=== PATIENT | male | born 1990 | race Caucasian/White ===

== ENCOUNTER 2024-09-15 20:10 | Emergency (ER) | payer SELFPAY ==
[2024-09-15 20:13] VITALS: BP 116/72; PULSE 76; RESP 14; TEMP 36.6; O2SAT 99; BMI 25.9
[2024-09-15] MEDS: tetanus-dipt-pertussis 0.5 mL SDV IM (20:30)
[2024-09-15 20:46] VITALS: BP 113/69; PULSE 72; O2SAT 99
--- NOTE | 2024-09-15 21:11 | W.ED.SKABFB ---
HPI - Skin/Abscess/Foreign Bdy General: Chief complaint: Skin/Abscess/Foreign Body Stated complaint: splinter in R arm Time Seen by Provider: 09/15/24 20:15 Source: patient Mode of arrival: ambulatory Limitations: no limitations History of Present Illness: Patient is a 34-year-old male who presents to the emergency department complaining of foreign body in his right forearm. He works in a sawmill and states that he thinks that he got a splinter lodged in his right forearm under the skin. States that he is ultimately not sure when this occurred but that he can feel something mobile under the skin. Tetanus not up-to-date. No pain reported. No fever or other symptoms. MD complaint: foreign body Onset (ago): unknown Tetanus up to date: no Location: RUE Context: other (Works in a sawmill, thinks splinter under skin) Associated symptoms: Deny chills, fever(s), nausea or vomiting Treatments prior to arrival: none Related Data Allergies Allergy/AdvReac Type Severity Reaction Status Date / Time Sulfa (Sulfonamide Allergy Unknown Verified 09/15/24 20:17 Antibiotics) Review of Systems General: Reports: 10 or more systems reviewed and unremarkable except in HPI and below Const: Denies: fever(s) or chills Card: Denies: chest pain Resp: Denies: dyspnea GI: Denies: abdominal pain, nausea, vomiting or diarrhea Musc: Denies: extremity pain or joint pain Skin/Breast: Reports: other (Foreign body right forearm); Denies: rash, skin pain, skin tenderness or new lesions Neuro: Denies: headache(s) Physical Exam Const: COMMON NORMALS: no acute distress, average body habitus, patient oriented x3, no limitations, healthy appearing, alert and well nourished HENMT: COMMON NORMALS: normocephalic and atraumatic HEAD & SCALP: normocephalic and atraumatic Neck/C-Spine: COMMON NORMALS: full ROM, no lymphadenopathy, supple and no meningeal signs Resp: COMMON NORMALS: normal respiratory effort, No use of accessory muscles and clear to auscultation bilaterally AUSCULTATION: clear to auscultation bilaterally Cardio: COMMON NORMALS: regular rate and regular rhythm RATE: regular rate RHYTHM: regular rhythm Extremity: COMMON NORMALS: full ROM and capillary refill normal Neuro: COMMON NORMALS: patient oriented x3 SENSORIUM/ORIENTATION: Yes alert MENINGEAL SIGNS: Yes no meningeal signs Skin: COMMON NORMALS: no rashes or lesions noted, no wounds and turgor normal NARRATIVE SKIN EXAM: There is palpable mobile linear foreign body subcutaneous to patient's right forearm GENERAL SKIN EXAM: no rashes or lesions noted and turgor normal Procedures Foreign Body Removal Site: right and upper extremity Description of foreign body: other (Splinter) Technique: manual removal and incision made to facilitate removal Confirmed by:: direct visualization Complications: none Post-procedure exam: awake, alert Neurovascular: normal distal pulse, normal capillary fill, distal light touch sensation intact, distal motor function normal, no signs of compartment syndrome and no change from pre-procedure Course Vital Signs: Vital signs: Vital Signs Temperature 97.8 F 09/15/24 20:13 Pulse Rate 72 09/15/24 20:46 Respiratory Rate 14 09/15/24 20:13 Blood Pressure 113/69 09/15/24 20:46 Pulse Oximetry 99 09/15/24 20:46 Oxygen Delivery Me thod Room Air 09/15/24 20:13 MDM - Skin/Abscess/Foreign Bdy Medicial Decision Making With manual removal and assistance from 11 blade, a large splinter was removed from right forearm after injection with local lidocaine with epinephrine. Procedure tolerated well and he is updated on his tetanus today. Discharged home in stable condition. No radiology studies performed this visit Discharge Plan Discharge Patient Disposition: Home Clinical Impression: Foreign body forearm Condition: Stable Discharge Orders: Discharge ED (Routine); Ordered 09/15/24 Ordered By: Yordy Johns Activity Restrictions/Additional Instructions: Keep the incision area clean as we discussed. Take ibuprofen for any pain. Your tetanus was updated today. Return with any fever, purulent drainage, or other concerns. Print Language: Armenian Coding Level of Care Code ED Accident Examiner for Daniel Win
== END 2024-09-15 20:47 | disposition home or self-care (01) ==
PROVIDERS: Emergency Provider Physician Assistant
DX: S51.841A Puncture wound with foreign body of right forearm, initial encounter (principal); W45.8XXA Other foreign body or object entering through skin, initial encounter; Z23 Encounter for immunization
CPT/HCPCS: 90471; 90715; 99283

== ENCOUNTER → 2024-12-19 12:06 | Outpatient (BNVA) | payer OTHER, SELFPAY | PROVIDERS: PCP Registered Nurse; Visit Provider Registered Nurse | DX: Z02.6 Encounter for examination for insurance purposes (principal) | CPT/HCPCS: 80307 ==